=== PATIENT | male | born 1950 | race Caucasian/White ===

== ENCOUNTER 2017-05-06 15:51 | Emergency (ER) | payer MEDICARE, BC ==
[~2017-05-06] VITALS: Ht 170.2 cm; Wt 86.4 kg
[~2017-05-06 15:51] MED LIST: ALLERGY RELIEF10 M1 PO; HCTZ 25MG25 MG PO; LIPITOR 10MG10 MG PO; NASALIDE0.025 MG/A NS; SYNTHROID0.125 MG PO; ZESTRIL40 MG PO
[2017-05-06 15:55] VITALS: BP 147/89; TEMP 97
[2017-05-06] MEDS ORDERED: ASPIRIN 81M81 MG/TA2 PO (16:38)
[2017-05-06] MEDS ORDERED: CEPHALEXIN500 M1 PO (17:16)
[2017-05-06 17:21] VITALS: PULSE 54
== END 2017-05-06 17:21 | disposition home or self-care (01) ==
LOC: COL.ER 15:51
DX: S61.214A Laceration without foreign body of right ring finger without damage to nail, initial encounter (principal); S61.216A Laceration without foreign body of right little finger without damage to nail, initial encounter; W22.8XXA Striking against or struck by other objects, initial encounter; Y92.009 Unspecified place in unspecified non-institutional (private) residence as the place of occurrence of the external cause

== ENCOUNTER → 2017-05-15 | Emergency (ER) | payer MEDICARE, BC ==
[~2017-05-15] MED LIST changes: +ASPIRIN 81M81 MG/TA2 PO; +CEPHALEXIN500 M1 PO
[2017-05-15 09:50] VITALS: BP 137/89; PULSE 64; TEMP 97.8
== END ==
LOC: COL.ER 09:45
DX: S61.214D Laceration without foreign body of right ring finger without damage to nail, subsequent encounter (principal); X58.XXXD Exposure to other specified factors, subsequent encounter

== ENCOUNTER 2019-10-13 06:40 | Day surgery (SDC) | payer MEDICARE, BC ==
[~2019-10-13] VITALS: Ht 170.2 cm; Wt 90.7 kg
[2019-10-13] MEDS ORDERED: PRINIVIL40 MG PO (07:28)
[2019-10-13] MEDS ORDERED: ALLEGRA 180MG180 MG PO (07:28)
[2019-10-13] MEDS ORDERED: HCTZ 25MG TAB25 MG PO (07:29)
[2019-10-13] MEDS ORDERED: LIPITOR 10MG10 MG PO (07:29)
[2019-10-13] MEDS ORDERED: LEVOXYL0.112 MG PO (07:29)
[2019-10-13] MEDS ORDERED: SINGULAIR 110 MG/TAB PO (07:30)
[2019-10-13] MEDS ORDERED: REMERON 15M15 MG/TA1 PO (07:30)
[2019-10-13 07:31] VITALS: BP 141/87; PULSE 62; TEMP 98
[2019-10-13] MEDS ORDERED: MULTI VITAMINS1 TAB PO (07:31)
[2019-10-13 09:00] VITALS: BP 128/80; PULSE 60; TEMP 97.7
--- NOTE | 2019-10-13 09:00 | NUR ---
Patient arrives to [facility] via cart, accompanied by Endo RN Elsy. Bedside report received. Patient is alert, sitting up in bed. He ambulates to the chair in the room with standby assist. Monitoring is applied - VSS and WNL on room air. He denies any pain or nausea. His is at the bedside. He is offered and receives juice, coffee, water, and a muffin.
[2019-10-13 09:15] VITALS: BP 123/84; PULSE 56
[2019-10-13 09:30] VITALS: BP 118/84; PULSE 60
--- NOTE | 2019-10-13 09:30 | NUR ---
VSS and WNL on room air. Denies pain or nausea. Tolerating PO well.
--- NOTE | 2019-10-13 09:45 | NUR ---
Discharge criteria has been met. Discharge instructions discussed with the patient and his . They deny any questions and verbalize understanding. PIV removed with catheter intact and hemostasis achieved. He is changing to clothing independently.
--- NOTE | 2019-10-13 09:56 | NUR ---
Patient is escorted to the exit via wheelchair. Discharged to home with ride in private vehicle at [id number].
== END 2019-10-13 09:56 | disposition home or self-care (01) ==
LOC: SDCO 06:40
DX: Z12.11 Encounter for screening for malignant neoplasm of colon (principal); Z86.010 Personal history of colon polyps; K64.0 First degree hemorrhoids; I10 Essential (primary) hypertension; E78.5 Hyperlipidemia, unspecified; Z85.46 Personal history of malignant neoplasm of prostate; Z79.82 Long term (current) use of aspirin; Z79.899 Other long term (current) drug therapy; Z88.1 Allergy status to other antibiotic agents
CPT/HCPCS: J2250; J3010; J7030